=== PATIENT | male | born 1985 | race Caucasian/White ===

== ENCOUNTER 2021-01-20 06:38 | Emergency (ER) | payer SELFPAY ==
[2021-01-20 06:46] VITALS: BP 146/97; PULSE 87; RESP 18; TEMP 36.3; O2SAT 97; BMI 34.4
[2021-01-20 07:04] VITALS: BP 138/98; PULSE 90; O2SAT 96
--- NOTE | 2021-01-20 07:07 | ED_ITS ---
HPI - Skin/Abscess/Foreign Bdy General: Chief complaint: Skin/Abscess/Foreign Body Stated complaint: L foot, pain/ itch Time Seen by Provider: 01/20/21 06:58 History of Present Illness: HPI narrative: 35-year-old male presents to the emergency room with complaint of a rash on the dorsum of his left foot. He has a history of psoriasis he states. He has been putting some [id number] medications on it without any significant relief it is significantly pruritic and he has excoriated it. It is inflamed and has a few areas of excoriation superficial abraded skin. He denies any fever sweats or chills or any other illness or injury recently. Patient denies any other skin lesions besides the 1 of concern on the left foot. MD complaint: rash Onset (ago): day(s) (3) Location: L foot Severity: moderate Quality: pruritic Relieving factors: none Exacerbating factors: none Context: other (History of psoriasis per patient) Associated symptoms: Deny arthralgias, chills, cough, fever(s), itching, myalgias, nausea, rigidity, short of breath or vomiting Treatments prior to arrival: none Review of Systems Const: Denies: fever(s) or chills ENMT: Denies: throat pain, ear or mastoid pain, nasal discharge or nasal congestion Card: Denies: chest pain, edema, dyspnea on exertion or orthopnea Resp: Denies: dyspnea, productive cough or non-productive cough GI: Denies: nausea or vomiting : Denies: flank pain, dysuria, urinary frequency or urinary urgency Skin/Breast: Denies: rash or pruritus Physical Exam Const: COMMON NORMALS: no acute distress GENERAL APPEARANCE: cooperative and comfortable ORIENTATION/CONSCIOUSNESS: Yes awake, Yes oriented to person, Yes oriented to place and Yes oriented to time HENMT: COMMON NORMALS: normocephalic, atraumatic and hearing grossly normal bilaterally HEAD & SCALP: normocephalic and atraumatic Extremity: COMMON NORMALS: normal to inspection, capillary refill normal, no clubbing, cyanosis or edema, no calf tenderness and no pedal edema Neuro: SENSORIUM/ORIENTATION: Yes oriented to person, Yes oriented to place and Yes oriented to time Skin: NARRATIVE SKIN EXAM: Excoriated psoriatic lesion on the dorsum of the left foot with areas of superficial abrasion from. There is mild thickening of the skin there is no purulence no active drainage. Dull chronic erythema no evidence of acute cellulitis no lymphangitis. Course Vital Signs: Vital signs: Vital Signs Temperature 97.3 F L 01/20/21 06:46 Pulse Rate 90 01/20/21 07:04 Respiratory Rate 18 01/20/21 06:46 Blood Pressure 138/98 01/20/21 07:04 Pulse Oximetry 96 01/20/21 07:04 MDM - Skin/Abscess/Foreign Bdy MDM Narrative: Medical decision making narrative: Topical betamethasone twice daily. If not improving over the next 5 to 7 days recommend follow-up with primary care or with dermatology. Discharge Plan Discharge Patient Disposition: Home Clinical Impression: Psoriasiform eczema Condition: Stable Prescriptions: New betamethasone dipropionate 0.05 % ointment 1 applic topical BID Qty: 45 RF: 0 Discharge Orders: Discharge ED (Routine); Ordered 01/20/21 Ordered By: Mina Kellogg Patient Instructions: Opioid Safety Stand Alone Forms: Work/School Release Coding Level of Care Code ED Chief Architect for Carrie Persaud
[2021-01-20 07:17] VITALS: BP 138/98; PULSE 77; RESP 17; O2SAT 96
== END 2021-01-20 07:17 | disposition home or self-care (01) ==
PROVIDERS: Emergency Provider Family Medicine
DX: L30.9 Dermatitis, unspecified (principal)
CPT/HCPCS: 99281

== ENCOUNTER 2021-09-04 14:28 | Emergency (ER) | payer SELFPAY ==
[2021-09-04 14:37] VITALS: BP 141/98; PULSE 83; RESP 16; TEMP 36.1; O2SAT 98; BMI 34.9
--- NOTE | 2021-09-04 15:27 | ED_ITS ---
HPI - Eye Problem General: Chief complaint: Eye Problems Stated complaint: Blurry vision Time Seen by Provider: 09/04/21 15:02 History of Present Illness: Patient is a 36-year-old male who comes to the ED with an episode of blurry vision. Patient does wear glasses. Patient says he wa s working at his computer at work and started getting bilateral blurry vision. He then started noticing his peripheral vision started getting worse and more blurry. He says he was able to focus on something in front of him but the peripheral vision would be blurry and squiggly. Symptoms were worse in left eye. Episode lasted for approximately 30 minutes. Episode resolved by the time he arrived to the ED. Here in the ED says his vision is back at baseline. Denies any injury, trauma or foreign body in eye. He said he did not have any eye pain or eye redness during episode. He has never had an episode like this before. 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 Denies any symptoms of chest pain, shortness of breath or headache during episode. Associated symptoms: Denies fever(s), headache(s), nausea, neck pain or vomiting Review of Systems Const: Denies: fever(s), chills or fatigue Eyes: Reports: change in vision (Episode of poor peripheral vision bilaterally) and blurry vision (Episode of bilateral blurry vision.); Denies: eye discomfort ENMT: Denies: throat pain, odynophagia, nasal discharge or nasal congestion Card: Denies: chest pain, palpitations, edema, swelling of feet/ankles, dyspnea on exertion or orthopnea Resp: Denies: dyspnea, productive cough or non-productive cough GI: Denies: abdominal pain, nausea, vomiting, diarrhea, constipation or hematochezia : Denies: flank pain, difficulty urinating, dysuria or hematuria Musc: Denies: neck pain, back pain or extremity swelling Skin/Breast: Denies: rash or new lesions Neuro: Denies: headache(s), numbness in extremities or weakness in extremities PFS ED PFSH: Medical History No pertinent family history Surgical History No pertinent past surgical history Physical Exam Const: COMMON NORMALS: no acute distress, patient oriented x3, healthy appearing and alert HENMT: COMMON NORMALS: normocephalic HEAD & SCALP: normocephalic MOUTH: Normal oral and palatal mucosa present THROAT: posterior oropharynx normal and uvula midline Eye: COMMON NORMALS: Equal, round and reactive pupils present, EOMs intact bilaterally and conjunctivae normal CONJUNCTIVA: Yes conjunctivae normal PUPIL: Yes Equal, round and reactive pupils present Neck/C-Spine: COMMON NORMALS: supple GENERAL: Yes normal visual inspection Resp: COMMON NORMALS: normal respiratory effort, No retractions, No use of accessory muscles and clear to auscultation bilaterally AUSCULTATION: clear to auscultation bilaterally Cardio: COMMON NORMALS: regular rate, regular rhythm, S1 normal heart sound present, S2 normal heart sound present, No gallops present (Cardio), No clicks present (Cardio), No murmurs present (Cardio) and Peripheral pulses 2+ throughout RATE: regular rate RHYTHM: regular rhythm HEART SOUNDS: S1 normal heart sound present and S2 normal heart sound present PERIPHERAL PULSES: Peripheral pulses 2+ throughout GI: COMMON NORMALS: Normal to inspection, nondistended, normoactive bowel sounds present, Soft to palpation, non-tender and no masses PALPATION: Yes Soft to palpation : COMMON NORMALS: Yes no CVA tenderness BLADDER/KIDNEY EXAM: Yes no CVA tenderness Back/Pelvis: COMMON NORMALS: no CVA tenderness Extremity: COMMON NORMALS: normal to inspection Neuro: COMMON NORMALS: patient oriented x3 and moves all extremities SENSORIUM/ORIENTATION: Yes alert Skin: GENERAL SKIN EXAM: dry skin Course Vital Signs: Vital signs: Vital Signs Temperature 96.9 F L 09/04/21 14:37 Pulse Rate 83 09/04/21 14:37 Respiratory Rate 16 09/04/21 14:37 Blood Pressure 141/98 09/04/21 14:37 Pulse Oximetry 98 09/04/21 14:37 MDM - Eye Problem Medical Decision Making Patient is a 36-year-old male comes to the ED with an episode of blurry peripheral vision. episode lasted approximately 30 minutes and resolved by the time he arrived to the ED. Patient says his vision is now back to baseline. Denies any head injury, headache or any other neurological symptoms during episode. Denies any eye irritation, eye redness, foreign body in eye or eye pain. Vitals are stable. Exam is benign. Patient is healthy appearing and in no acute distress or pain. CT of head showed no acute intracranial abnormalities. Patient diagnosed with a transient vision disturbance of both eyes. He was told to follow-up with his PCP within the next 5 days for reevaluation. Return to ED precautions given. Patient understood and agree with plan. Lab Data Radiology Impressions Head CT 09/04/21 16:09 IMPRESSION: No acute intracranial abnormality. Discharge Plan Discharge Patient Disposition: Home Clinical Impression: Transient vision disturbance of both eyes Condition: Stable Prescriptions: No Action betamethasone dipropionate 0.05 % ointment 1 applic topical BID Qty: 45 0RF Discharge Orders: Discharge ED (Routine); Ordered 09/04/21 Ordered By: Gerardo Gutierrez Discharge Diet: Regular Discharge Activity: Resume usual activity Activity Restrictions/Additional Instructions: Follow-up with medical provider as directed in the next 5 to 7 days reevaluation. Return to the ER or your medical provider if condition worsens. Please read and understand discharge instructions. Thank you for choosing [facility] for your healthcare needs today. Please realize this is an emergency room and that we are providing you with a medical screening exam and this may not be complete and all inclusive of all the testing and or work up that you may need to determine your ailment or severity of your illness. It is very important that you follow up as instructed or that you return to the Emergency Department should you have concerns or if your condition changes or worsens in any way. Coding Level of Care Code ED Senior Private Client Advisor for Carrie Persaud Exam Comprehensive
--- NOTE | 2021-09-04 16:09 | CTR_ITS ---
PROCEDURE INFORMATION: Exam: CT Head Without Contrast Exam date and time: 09/04/2021 4:20 PM Age: 36 years old Clinical indication: Visual disturbance; Additional info: Brief episode of peripheral vision loss TECHNIQUE: Imaging protocol: Computed tomography of the head without contrast. Radiation optimization: All CT scans at this facility use at least one of these dose optimization techniques: automated exposure control; mA and/or kV adjustment per patient size (includes targeted exams where dose is matched to clinical indication); or iterative reconstruction. COMPARISON: No relevant prior studies available. RADIATION DOSE METRICS: Total DLP (mGy-cm): 877.89 FINDINGS: Brain: Normal. No hemorrhage. Unremarkable white matter. No mass effect. Cerebral ventricles: No ventriculomegaly. Paranasal sinuses: Visualized sinuses are unremarkable. No fluid levels. Mastoid air cells: Visualized mastoid air cells are well aerated. Orbital cavities: Visualized is bilateral intraorbital contents appear normal. Bones/joints: Unremarkable. No acute fracture. Soft tissues: Unremarkable. CT/CT head wo con* [id number] IMPRESSION: No acute intracranial abnormality.
== END 2021-09-04 17:25 | disposition home or self-care (01) ==
PROVIDERS: Emergency Provider Physician Assistant
DX: H53.8 Other visual disturbances (principal)
CPT/HCPCS: 70450; 99282